=== PATIENT | female | born 1935 | race Caucasian/White ===

== ENCOUNTER → 2022-03-20 | Outpatient (CLI) | payer MEDICARE, OTHER ==
--- NOTE | 2022-03-22 14:52 | MR ---
EXAMINATION TYPE: MR iac wo/w con DATE OF EXAM: 03/20/2022 COMPARISON: NONE HISTORY: 86-year-old female H91.9, dizziness, left ear hearing loss, R42. TECHNIQUE: Multiplanar, multisequence images of the brain and brainstem were acquired before and aft er administration of 4.2 mL IV Gadavist. Diffusion weighted imaging was performed. Additional coned -down sequences through the internal auditory canals and posterior cranial fossa before and after IV contrast administration. FINDINGS: Diffusion weighted images demonstrate no evidence of an acute ischemic lesion in the brain. Midline structures demonstrate partially empty sella but otherwise normal morphology. The craniocerv ical junction is normal. There is moderate generalized supratentorial volume loss. Mild ventriculomegaly, Ole's ratio calcula garrick at 0.36. T2/FLAIR weighted sequences show patchy periventricular right white matter change and additional mild scattered foci within the deep white matter region of both cerebral hemispheres. Some mild patchy in creased signal change also present along the bilateral paramedian lisa. Numerous small perivascular s paces in the basal ganglia. There is no evidence of an acute intracranial hemorrhage, infarct, mass, mass-effect or an extra-axia l fluid collection. There is no cerebellopontine angle mass. The internal auditory canals are symmetric. Brainstem and skull base abnormalities are not seen. Post contrast images demonstrate no evidence of pathologic enhancement in the posterior cranial fossa or the internal auditory canals. There is no abnormal enhancement of the labyrinths. Mild mucosal thickening ethmoid air cells. Slight leftward nasal septal deviation. Globes are intact. IMPRESSION: 1. Moderate generalized atrophy and mild to moderate burden of chronic small vessel ischemic disease. No acute intracranial abnormality seen. 2. Mild ventriculomegaly likely relates to central cerebral atrophy. Ole's ratio is measured at 0.36 . Correlate clinically to exclude the possibility of NPH. 3. No specific abnormality on acoustic MRI. 4. Mild chronic ethmoid sinus disease.
== END | disposition home or self-care (01) ==
LOC: RADMRIMAIN 11:41
PROVIDERS: ATTEND Otolaryngology
DX: I67.82 Cerebral ischemia (principal); J32.2 Chronic ethmoidal sinusitis; G93.89 Other specified disorders of brain; G31.9 Degenerative disease of nervous system, unspecified
CPT/HCPCS: 70553; A9585